=== PATIENT | female | born 1980 | race Caucasian/White ===

== ENCOUNTER 2017-12-17 12:29 | Emergency (ER) | payer OTHER ==
[~2017-12-17] VITALS: Ht 165.1 cm; Wt 81.7 kg
== END 2017-12-17 14:15 | disposition home or self-care (01) ==
LOC: ER 12:29
DX: S93.401A Sprain of unspecified ligament of right ankle, initial encounter (principal); W10.9XXA Fall (on) (from) unspecified stairs and steps, initial encounter; F17.200 Nicotine dependence, unspecified, uncomplicated
CPT/HCPCS: 73610; 73630; 99283-25

== ENCOUNTER 2018-12-29 15:30 | Emergency (ER) | payer OTHER ==
[~2018-12-29] VITALS: Ht 165.1 cm; Wt 77.1 kg
[2018-12-29] MEDS ORDERED: NAPR550 PO (16:38)
== END 2018-12-29 16:50 | disposition home or self-care (01) ==
LOC: ER 15:30
DX: M25.562 Pain in left knee (principal); F17.200 Nicotine dependence, unspecified, uncomplicated; Z79.899 Other long term (current) drug therapy
CPT/HCPCS: 73562-LT; 99283-25